=== PATIENT | male | born 1945 | race Caucasian/White ===

== ENCOUNTER → 2017-10-03 | Outpatient (CLI) | payer MEDICARE, BC ==
[~2017-10-03] MED LIST: ALIGN4 MG PO; AMITIZA24 MCG PO; AMLODIPINE BESY10 MG PO; ASPIRIN81 M1 PO; ATENOLOL25 MG PO; CITRUCEL500 MG PO; CLONAZEPAM1 MG PO; GABAPENTIN300 MG PO; MELATONIN10 MG PO; PANTOPRAZOLE SO40 MG PO; PAROXETINE HCL20 MG PO; PRAVASTATIN SOD40 MG PO; TEMAZEPAM15 MG PO; VITAMIN D35000 UNIT PO
--- NOTE | 2017-10-04 23:42 | Diagnostic Imaging Report ---
EXAMINATION: MRI of the cervical spine without contrast HISTORY: Neck pain for the last 3 years COMPARISON: None available TECHNIQUE: Sagittal T1, T2, STIR; axial T2, gradient echo. FINDINGS: Curvature: Normal lordosis. Vertebrae: No evidence of neoplasm, infection, or fracture. Foramen magnum: No mass, Chiari malformation, or basilar invagination. Spinal Cord: Normal size and signal intensity. Soft Tissues: Unremarkable. Degenerative changes: C1-C2: Unremarkable. C2-C3: Disc osteophyte, bilateral uncovertebral and facet hypertrophy. Mild right foraminal stenoses. C3-C4: Disc osteophyte complex formation, bilateral uncovertebral and facet arthrosis. Moderately severe bilateral foraminal stenoses. C4-C5: Disc osteophyte complex formation, bilateral uncovertebral and facet arthrosis. Moderate right and severe left foraminal stenosis. C5-C6: Disc osteophyte complex formation, bilateral uncovertebral and facet arthrosis. Mild bilateral foraminal stenoses. C6-C7: Minimal disc bulge, mild uncovertebral and facet arthrosis. No significant canal or foraminal stenosis C7-T1: Minimal disc bulge and bilateral facet arthrosis without canal or foraminal stenosis IMPRESSION: 1. 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 2. Mild multilevel spondylosis without significant spinal canal stenosis. Signed by: Dr. Helen Desouza M.D. on 10/04/2017 11:38 PM
== END ==
LOC: MRI 07:13
PROVIDERS: ATTEND Family Medicine
DX: M47.22 Other spondylosis with radiculopathy, cervical region (principal)
CPT/HCPCS: 72141

== ENCOUNTER → 2019-02-07 | Day surgery (SDC) | payer MEDICARE, BC ==
[2019-01-19 12:29] LABS: BASOPHILS % 0.5 % (0.0-1.0); EOSINOPHILS # (AUTO) 0.1 (0.0-0.4); EOSINOPHILS % 0.9 % (0.0-6.0); HEMOGLOBIN 13.4 g/dL (14.0-18.0); LYMPHOCYTES # (AUTO) 2.5 (1.0-3.2); LYMPHOCYTES % 33.6 % (18.0-39.1); MEAN CORPUSCULAR HEMOGLOBIN 30.6 pg (28-32); MEAN CORPUSCULAR HGB CONC 33.5 g/dL (31-35); MEAN CORPUSCULAR VOLUME 91.3 fL (81-99); MONOCYTES # (AUTO) 0.5 (0.2-0.8); MONOCYTES % 7.1 % (4.4-11.3); NEUTROPHILS # (AUTO) 4.3 (2.1-6.9); NEUTROPHILS % 57.6 % (38.7-80.0); PLATELET COUNT 180 x10e3/uL (140-360); RED BLOOD COUNT 4.38 x10e6/uL (4.3-5.7); RED CELL DISTRIBUTION WIDTH 12.4 % (11.7-14.4)
[~2019-02-07] MED LIST changes: +GLUCAGON FOR INJ 1 MG VIAL ONE; +GLYCOPYRROLATE INJ 1MG/ 5 ML SYR ONE; +HYOSCYAMINE 0.125 MG TAB ONE; +MIDAZOLAM HCL 2 MG/2 ML VIAL ONE; +PROPOFOL IV EMULSION 10 MG/ML 50 ML VIAL ONE; +[UNRECOGNIZED DRUG - SUPPLY]
--- OUTSIDE RECORDS SUMMARY | 2019-02-07 05:48 | XMS REPORT ---
Author Author [facility] Address Unknown Phone Unavailable Care Team Providers Care Print Support Specialist Name Role Phone LUZ ELENA OQUENDO Unavailable Unavailable Problems This patient has no known problems. Allergies, Adverse Reactions, Alerts This patient has no known allergies or adverse reactions. Medications This patient has no known medications. Results Test Description Test Time Test Comments Text Results Atomic Results Result Comments MRI SPINE CERVICAL WO [place] [address] Patient Name: DAYAMI SOTO MR #: [id number] : 1945 Age/Sex: 71/M Req #: [id number] Adm Physician: Ordered by: OQUENDO ANDREW DO Report #: [id number] Location: MRI Room/Bed: Procedure: [id number] MRI/MRI SPINE CERVICAL WO Exam Date: Exam Time: REPORT STATUS: Signed EXAMINATION: MRI of the cervical spine without contrast HISTORY: Neck pain for the last 3 years COMPARISON: None available TECHNIQUE: Sagittal T1, T2, STIR; axial T2, gradient echo. FINDINGS: Curvature: Normal lordosis. Vertebrae: No evidence of neoplasm, infection, or fracture. Foramen magnum: No mass, Chiari malformation, or basilar invagination. Spinal Cord: Normal size and signal intensity. Soft Tissues: Unremarkable. Degenerative changes: C1-C2: Unremarkable. C2-C3: Disc osteophyte, bilateral uncovertebral and facet hypertrophy. Mild right foraminal stenoses. C3-C4: Disc osteophyte complex formation, bilateral uncovertebral and facet arthrosis. Moderately severe bilateral foraminal stenoses. C4-C5: Disc osteophyte complex formation, bilateral uncovertebral and facet arthrosis. Moderate right and severe left foraminal stenosis. C5-C6: Disc osteophyte complex formation, bilateral uncovertebral and facet arthrosis. Mild bilateral foraminal stenoses. C6-C7: Minimal disc bulge, mild uncovertebral and facet arthrosis. No significant canal or foraminal stenosis C7-T1: Minimal disc bulge and bilateral facet arthrosis without canal or foraminal stenosis IMPRESSION: 1. 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 2. Mild multilevel spondylosis without significant spinal canal stenosis. Signed by: Dr. Miranda Desouza M.D. on 10/04/2017 11:38 PM Dictated By: MIRANDA DESOUZA MD [id number] Transcribed By: JOYCE on 10/04/17 1281 COPY TO: LUZ ELENA OQUENDO DO
--- OUTSIDE RECORDS SUMMARY | 2019-02-07 05:48 | XMS REPORT | Clinical Summary ---
Author Author [facility] Address Unknown Phone Unavailable Care Team Providers Care Structural Engineering Technician Name Role Phone Edmundo Adams MD PCP Allergies Comments Active Allergy Reactions Severity Noted Date C. Diff Clindamycin 04/22/2018 Tetracycline Itching, Rash Low 04/22/2018 Medications End Date Status Medication Sig Dispensed Refills Start Date Active pravastatin (PRAVACHOL) 0 40 MG tablet 8 Active clonAZEPAM (KlonoPIN) 2 0 MG tablet 9 Active clonAZEPAM (KlonoPIN) 1 0 MG tablet 9 Active PARoxetine (PAXIL) 40 MG paroxetine 40 0 tablet mg tablet Active melatonin 1 mg tablet melatonin 0 Active amLODIPine (NORVASC) 10 0 mg tablet 8 Active pantoprazole (PROTONIX) 0 40 MG EC tablet 8 Active BABY ASPIRIN ORAL Baby Aspirin 0 Active cholecalciferol, vitamin Vitamin D3 0 D3, (VITAMIN D3) 1,000 unit capsule Active Lactobac no.41/Bifidobact Take by 0 no.7 (PROBIOTIC-10 ORAL) mouth. Active plecanatide (TRULANCE Take by 0 ORAL) mouth. 06/14/2018 Discontinued (Med List Cleanup) amoxicillin-pot Take 4 tabs 12 tablet 1 clavulanate (AUGMENTIN) PO 1- 2 hours 8 500-125 mg per prior to tabletIndications: dental Prophylactic antibiotic, cleaning or History of joint invasive replacement, unspecified procedure. joint Take 4 tabs once for significant cut, animal or insect bite. Active Problems Problem Noted Date Arthritis of left knee 06/14/2018 Encounters Care Team Description Date Type Specialty Lul Wells MD Arthritis of left knee (Primary Dx) 06/14/2018 Office Visit Orthopedic Surgery Mcfarland, Clarisa, RN Prophylactic antibiotic (Primary Dx); History of joint replacement, unspecified joint 04/22/2018 Telephone Orthopedic Surgery after 02/06/2018 Social History Date Tobacco Use Types Packs/Day Years Used Never Assessed Sex Assigned at Date Recorded Not on file Industry Job Start Date Occupation Not on file Not on file Not on file Travel End Travel History Travel Start No recent travel history available. Last Filed Vital Signs Not on file Plan of Treatment Health Maintenance Due Date Last Done Comments COLONOSCOPY SCREENING 1994 SHINGLES VACCINES (#1) 1994 65+ PNEUMOCOCCAL VACCINE 2009 (1 of 2 - PCV13) INFLUENZA VACCINE 12/23/2018 Procedures Comments Procedure Name Priority Date/Time Associated Diagnosis RI ARTHROCENTESIS Routine 06/14/2018 Arthritis of left knee ASPIR&/INJ MAJOR JT/BURSA 2:40 PM SQL SERVER DEVELOPER W/O US XR KNEE 4+ VW LEFT Routine 06/14/2018 Arthritis of left knee 2:06 PM SQL SERVER DEVELOPER after 02/06/2018 Results * Left knee cortisone injection (06/14/2018 2:40 PM SQL SERVER DEVELOPER) Narrative Performed At Lul Wells MD 06/14/20183:30 PM Left knee cortisone injection Consent given by: patient Site marked: site marked Timeout: Immediately prior to procedure a time out was called to verify the correct patient, procedure, equipment, student support services director and site/side marked as required Supporting Documentation Indications: pain Procedure Details Preparation: Patient was prepped and draped in the usual sterile fashion Ultrasound guided: no Platelet Rich Plasma Used: no PRP Used Location: knee - L knee Left side: Needle size: 25 G (25 gauge) Approach: anteromedial Left knee medications administered: 3 mg betamethasone acetate & sodium phosphate 6 mg/mL; 0.5 mL lidocaine 10 mg/mL (1 %) Aspirate amount: 0 mL Patient tolerance: patient tolerated the procedure well with no immediate complications * XR Knee 4+ Vw Left (06/14/2018 2:06 PM SQL SERVER DEVELOPER) Specimen Narrative Performed At [facility], lateral, oblique, patellofemoral view x-rays of the left knee are done.These demonstrate narrowing in the medial and lateral compartments of the knee.There is some irregularity along the medial femoral condyle. There is some calcification noted along the posterior vessels.There is no evidence for fracture, dislocation. Performing Organization Address City/State/Zipcode Phone Number [facility] [address] [place] [address] after 02/06/2018 Insurance Type Payer Benefit Subscriber ID Effective Phone Address Plan / Dates Group Medicare MEDICARE MEDICARE xxxxxxxxxxx 2009-P MEDEL, PART A AND resent [place] B Indemnity BCBS BCBS xxxxxxxxxxxx 2010-P PAR/TRAD resent PLAN ([place]) [place] [address] Advance Directives For more information, please contact: [phone] Patient Contact And Service Clerks Supervisor Explanation Type Date Recorded Advance Directives, Living Will and Medical Power of Veterans Services Specialist
[2019-02-07 09:27] VITALS: BP 126/70
--- NOTE | 2019-02-07 13:34 | Operative Report ---
DATE OF PROCEDURE: 02/07/2019 SURGEON: Pratik Sellers MD PROCEDURE: Colonoscopy with polypectomy. INDICATIONS FOR COLONOSCOPY: Surveillance colonoscopy, personal history of colon polyps. MEDICATIONS: The patient was done under MAC, please see anesthesiologist's note. PROCEDURE IN DETAIL: With the patient in left lateral decubitus position, a flexible fiberoptic Olympus colonoscope was inserted into the rectum with ease and advanced all the way to the cecum. Prep overall was suboptimal with retained stools in the colon, but visualization was fair after extensive large. The scope was then withdrawn slowly, whatever was visualized the mucosa overlying the cecum, ascending colon, transverse colon, and descending colon appeared to be within normal limits. Two polyps were hot biopsied from the sigmoid. One polyp was hot biopsied from the rectum. The scope was then retroflexed into the distal rectum and moderate-sized internal hemorrhoids were noted, none of which was actively bleeding. The scope was then straightened out, it was subsequently withdrawn, and the patient tolerated the procedure well. IMPRESSION: 1. Suboptimal prep visualization fair after extensive large. 2. Sigmoid colon polyps x2, hot biopsied. 3. Rectal polyp x1, hot biopsied. 4. Internal hemorrhoids, none actively bleeding. PLAN: Follow up histology. Initiate high-fiber, low-fat diet. Initiate high-fiber supplement. The patient will need a followup colonoscopy in 3 years. Pratik Sellers MD [facility] [place]/[facility] /[id number]
== END | disposition home or self-care (01) ==
LOC: OR 05:32
PROVIDERS: ATTEND Internal Medicine Gastroenterology
DX: K59.00 Constipation, unspecified (principal); K63.5 Polyp of colon; K62.1 Rectal polyp; K64.8 Other hemorrhoids; K58.9 Irritable bowel syndrome, unspecified; K29.70 Gastritis, unspecified, without bleeding; K21.9 Gastro-esophageal reflux disease without esophagitis; G47.33 Obstructive sleep apnea (adult) (pediatric); I25.10 Atherosclerotic heart disease of native coronary artery without angina pectoris; I10 Essential (primary) hypertension; I44.0 Atrioventricular block, first degree; R00.1 Bradycardia, unspecified; M19.90 Unspecified osteoarthritis, unspecified site; F41.9 Anxiety disorder, unspecified; F32.9 Major depressive disorder, single episode, unspecified; Z88.1 Allergy status to other antibiotic agents; Z95.5 Presence of coronary angioplasty implant and graft; Z01.810 Encounter for preprocedural cardiovascular examination; Z01.812 Encounter for preprocedural laboratory examination
CPT/HCPCS: 36415; 45384; 85025; 88305; 93005; J1610; J2250; J2704; J3490; 45378

== ENCOUNTER → 2020-09-24 | Outpatient (CLI) | payer MEDICARE, OTHER ==
[~2020-09-24] MED LIST changes: -GLUCAGON FOR INJ 1 MG VIAL ONE; -GLYCOPYRROLATE INJ 1MG/ 5 ML SYR ONE; -HYOSCYAMINE 0.125 MG TAB ONE; -MIDAZOLAM HCL 2 MG/2 ML VIAL ONE; -PROPOFOL IV EMULSION 10 MG/ML 50 ML VIAL ONE
== END ==
LOC: RAD 10:27
PROVIDERS: ATTEND Internal Medicine Gastroenterology
DX: K59.09 Other constipation (principal)
CPT/HCPCS: 74018

== ENCOUNTER → 2021-03-18 | Outpatient (CLI) | payer MEDICARE, OTHER | LOC: RAD 10:17 | PROVIDERS: ATTEND Internal Medicine Gastroenterology | DX: K59.09 Other constipation (principal) | CPT/HCPCS: 74018 ==

== ENCOUNTER → 2021-12-18 | Day surgery (SDC) | payer MEDICARE, OTHER ==
[~2021-12-18] MED LIST changes: +FENTANYL CITRATE/PF 100MCG/2 ML INJ ONE; +HYOSCYAMINE SULFATE 0.5 MG/ML INJ ONE; +LIDOCAINE HCL 2% LOCAL INJ 5 ML SDV VIAL INJ ONE; +MIDAZOLAM HCL 2 MG/2 ML VIAL ONE; +PROPOFOL IV EMULSION 10 MG/ML 20 ML VIAL ONE; +VITAMIN C500 MG PO; +ZINC PO
[2021-12-18 15:23] VITALS: BP 123/70
== END | disposition home or self-care (01) ==
LOC: OR 11:39
PROVIDERS: ATTEND Internal Medicine Gastroenterology
DX: K59.09 Other constipation (principal); K63.5 Polyp of colon; K57.30 Diverticulosis of large intestine without perforation or abscess without bleeding; K58.9 Irritable bowel syndrome, unspecified; K64.8 Other hemorrhoids; K29.60 Other gastritis without bleeding; Z71.3 Dietary counseling and surveillance; G47.33 Obstructive sleep apnea (adult) (pediatric); I25.10 Atherosclerotic heart disease of native coronary artery without angina pectoris; I10 Essential (primary) hypertension; E78.5 Hyperlipidemia, unspecified; M06.9 Rheumatoid arthritis, unspecified; M19.90 Unspecified osteoarthritis, unspecified site; H91.90 Unspecified hearing loss, unspecified ear; F41.9 Anxiety disorder, unspecified; Z88.1 Allergy status to other antibiotic agents; Z01.812 Encounter for preprocedural laboratory examination; Z20.822 Contact with and (suspected) exposure to COVID-19; Z79.82 Long term (current) use of aspirin; Z79.899 Other long term (current) drug therapy; Z85.828 Personal history of other malignant neoplasm of skin; Z95.5 Presence of coronary angioplasty implant and graft
CPT/HCPCS: 0223U; 36415; 45380; 88305; J1980; J2001; J2250; J2704; J3010; 45378

== ENCOUNTER → 2023-06-30 | Outpatient (REF) | payer MEDICARE, OTHER ==
[~2023-06-30] MED LIST changes: -FENTANYL CITRATE/PF 100MCG/2 ML INJ ONE; -HYOSCYAMINE SULFATE 0.5 MG/ML INJ ONE; +IOPAMIDOL 370 MG/ML 100 ML INFUS..BTL INJ ONE; -LIDOCAINE HCL 2% LOCAL INJ 5 ML SDV VIAL INJ ONE; -MIDAZOLAM HCL 2 MG/2 ML VIAL ONE; -PROPOFOL IV EMULSION 10 MG/ML 20 ML VIAL ONE; +SODIUM CHLORIDE 0.9% 500ML 500 ML ONE
[2023-06-30 13:52] LABS: CREATININE, SERUM 1.29 mg/dL (0.72-1.25)
== END ==
LOC: CT 13:15
PROVIDERS: ATTEND Nurse Practitioner
DX: R10.84 Generalized abdominal pain (principal)
CPT/HCPCS: 36415; 74177; 82565; 84520; 96360; J7040; Q9967